=== PATIENT | male | born 2000 | race African-American/Black ===

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

== ENCOUNTER 2019-01-09 12:21 | Emergency (ER) | payer OTHER ==
[~2019-01-09] VITALS: Ht 193 cm; Wt 143.1 kg
[2019-01-09 12:45] VITALS: BP 136/54
--- NOTE | 2019-01-09 12:51 | NUR ---
PT TO LOBBY WITH PARENT
--- NOTE | 2019-01-09 13:21 | NUR ---
PT AMBULATED TO BED 08.
--- NOTE | 2019-01-09 13:27 | NUR ---
PT C/O OF NUMBNESS AND SHARP PAIN MAINLY IN FINGERTIPS. USED LATEX GLOVES AT WORK CAUSING PEELING OF THE FINGERTIPS. HAS BEEN OCCURRING FOR ABOUT 3 WEEKS AND PROGRESSIVELY GOTTEN WORSE. 10/10 PAIN. HAS NOT TAKEN ANY MEDS BUT TRIED TO PUT LOTION ON SKIN WHICH CAUSED MORE IRRITATION. CAP REFILL <2 SECONDS. SKIN PEELING ON BOTH HANDS. MEDHX: DENIES RX: DENIES
[2019-01-09 14:42] VITALS: BP 136/54
[2019-01-09] MEDS: BACITRACIN OINT 500 UNITS/GM PKT TP ONE (14:42)
--- NOTE | 2019-01-09 14:43 | NUR ---
Patient discharged with v/s stable. Written and verbal after care instructions given and explained. Patient alert, oriented and verbalized understanding of instructions. Ambulatory with steady gait. All questions addressed prior to discharge. ID band removed. Patient advised to follow up with PMD. Rx of bacitracin/ hydrocortisone given. Patient educated on indication of medication including possible reaction and side effects. Opportunity to ask questions provided and answered.
[2019-01-09] MEDS ORDERED: NEOMYCIN/POLYMYXIN/BACITRACIN 0.9 GM/1 PKT TP ONE (14:48)
== END 2019-01-09 14:43 | disposition home or self-care (01) ==
LOC: MED 12:21
DX: S61.001A Unspecified open wound of right thumb without damage to nail, initial encounter (principal); L25.9 Unspecified contact dermatitis, unspecified cause; Z79.899 Other long term (current) drug therapy; Z91.040 Latex allergy status; X58.XXXA Exposure to other specified factors, initial encounter; Y93.G1 Activity, food preparation and clean up; Y92.89 Other specified places as the place of occurrence of the external cause; Y99.8 Other external cause status
CPT/HCPCS: 99283

== ENCOUNTER 2019-06-30 12:07 | Emergency (ER) | payer OTHER ==
[~2019-06-30] VITALS: Ht 195.6 cm; Wt 129.3 kg
[~2019-06-30 12:07] MED LIST changes: +DIVA500T37 PO; -DIVA500T47 PO
--- NOTE | 2019-06-30 12:07 | NUR ---
PATIENT WHEELCHAIR ASSISTED TO BED 7.
[2019-06-30 12:10] VITALS: BP 148/80
--- NOTE | 2019-06-30 12:10 | NUR ---
pt bib mom c/o n/v/d, low abd pain s/p dx with DM on 06/29/2019. SKIN IS INTACT, PINK/WARM/DRY; AAOX4, PERRL, UNSTEADY GAIT-STS" I'm weak, I feel like I was going to passout."; LUNGS CLEAR BL, BREATHING UNLABORED; HR EVEN AND REGULAR, BL PERIPHERAL PULSES PRESENT; BS ACTIVE X4, NO TENDERNESS TO PALPATION. PT DENIES ANY FEVER, CP, SOB, OR COUGH AT THIS TIME; PT STATES 5/10 PAIN AT THIS TIME; VSS; PATIENT POSITIONED FOR COMFORT; HOB ELEVATED; BEDRAILS UP X2; BED DOWN.
[2019-06-30] MEDS ORDERED: NACL 0.9% 500 ML IV ONE (12:18)
[2019-06-30] MEDS ORDERED: METF1TER8 PO (12:32)
--- NOTE | 2019-06-30 12:35 | NUR ---
lab at bedside, ua sent
--- NOTE | 2019-06-30 12:41 | NUR ---
mom at bedside, nsr with pvs noted, -cp, -sob at this time
[2019-06-30 12:59] LABS: BASOPHILS % (AUTO) 0.1 % (0.0-2.0); HEMATOCRIT 46.1 % (36-52); HEMOGLOBIN 15.1 g/dL (12.0-18.0); LYMPHOCYTES # (AUTO) 0.2 K/uL (2.0-11.5); LYMPHOCYTES % (AUTO) 1.5 % (20.5-51.1); MEAN CORPUSCULAR HEMOGLOBIN 30 pg (27-31); MEAN CORPUSCULAR HGB CONC 33 g/dL (33-37); MEAN CORPUSCULAR VOLUME 90.2 fL (80-94); MONOCYTES # (AUTO) 0.3 K/uL (0.8-1.0); MONOCYTES % (AUTO) 3.3 % (1.7-9.3); NEUTROPHILS # (AUTO) 9.7 K/uL (1.8-7.7); NEUTROPHILS % (AUTO) 95.1 % (42.2-75.2); PLATELET COUNT (AUTO) 169 K/uL (140-450); RED BLOOD CELL COUNT(AUTO) 5.11 MIL/uL (4.20-6.10); WHITE BLOOD COUNT (AUTO) 10.2 K/uL (4.5-11.0)
[2019-06-30 13:18] LABS: ALBUMIN 4.4 g/dL (3.4-5.0); ANION GAP 15.7 (8-16); ASPARTATE AMINOTRANSFERASE 23 U/L (15-37); CARBON DIOXIDE 26.1 mmol/L (21-32); CHLORIDE 100 mmol/L (98-107); CREATININE 0.8 mg/dL (0.6-1.3); GFR ARICAN-AMERICAN 160 mL/min (>90); GLUCOSE 256 mg/dL (74-106); POTASSIUM 4.8 mmol/L (3.5-5.1); SODIUM SERUM 137 mmol/L (136-145); TOTAL BILIRUBIN 0.6 mg/dL (0.0-1.0); UREA NITROGEN, BLOOD 6 mg/dL (7-18)
[2019-06-30 13:21] LABS: ACETONE, SERUM NEGATIVE (NEGATIVE)
[2019-06-30 14:30] VITALS: BP 134/89
--- NOTE | 2019-06-30 14:30 | NUR ---
Patient discharged with v/s stable. Written and verbal after care instructions given and explained. Patient alert, oriented and verbalized understanding of instructions. Ambulatory with parents. All questions addressed prior to discharge. IV removed from RAC. Skin intact. ID band removed. Patient advised to follow up with PMD. Rx of motrin and zofran given. Patient educated on indication of medication including possible reaction and side effects. Opportunity to ask questions provided and answered.
--- NOTE | 2019-07-02 12:13 | NUR ---
Late entry. Confirmed with RN that 0.9 NS IV completed at 1330
== END 2019-06-30 14:30 | disposition home or self-care (01) ==
LOC: MED 12:07
DX: K52.9 Noninfective gastroenteritis and colitis, unspecified (principal); E11.9 Type 2 diabetes mellitus without complications; Z79.899 Other long term (current) drug therapy; Z91.040 Latex allergy status
CPT/HCPCS: 36415; 80053; 82009; 85025; 96360; 99283; J7030

== ENCOUNTER 2020-05-10 14:45 | Emergency (ER) | payer OTHER, SELFPAY ==
[~2020-05-10] VITALS: Ht 193 cm; Wt 131.5 kg
[~2020-05-10 14:45] MED LIST changes: +METF1TER8 PO
[2020-05-10 14:48] VITALS: BP 155/87
--- NOTE | 2020-05-10 16:14 | NUR ---
Patient discharged with v/s stable. Written and verbal after care instructions given and explained. Patient alert, oriented and verbalized understanding of instructions. Ambulatory with steady gait. All questions addressed prior to discharge. ID band removed. Patient advised to follow up with PMD. Rx of Zyrtec and Albuterol given. Patient educated on indication of medication including possible reaction and side effects. Opportunity to ask questions provided and answered. Covid swab collected and sent to the lab. No nursing care provided in our ER.
--- NOTE | 2020-05-15 01:00 | NUR ---
Positive COVID-19 test results were received from lab. A copy of the test results were given to Infection Control.
== END 2020-05-10 16:14 | disposition home or self-care (01) ==
LOC: MED 14:45
DX: R06.02 Shortness of breath (principal); Z20.828 Contact with and (suspected) exposure to other viral communicable diseases; E11.9 Type 2 diabetes mellitus without complications; Z91.040 Latex allergy status; Z79.899 Other long term (current) drug therapy
CPT/HCPCS: 71045; 99284; U0003

== ENCOUNTER 2020-05-12 06:24 | Emergency (ER) | payer OTHER, SELFPAY ==
[~2020-05-12] VITALS: Ht 190.5 cm; Wt 131.5 kg
[2020-05-12 06:40] VITALS: BP 131/72
--- NOTE | 2020-05-12 06:40 | NUR ---
TO TENT # 01 AMBULATORY
[2020-05-12] MEDS: ACETAMINOPHEN 325 MG TAB PO ONE (08:20)
[2020-05-12 09:35] VITALS: BP 131/72
--- NOTE | 2020-05-12 09:35 | NUR ---
Patient discharged with v/s stable. Written and verbal after care instructions given and explained. Patient alert, oriented and verbalized understanding of instructions. Ambulatory with steady gait. All questions addressed prior to discharge. ID band removed. Patient advised to follow up with PMD. Rx of PROMETHAZINE given. Patient educated on indication of medication including possible reaction and side effects. Opportunity to ask questions provided and answered.
== END 2020-05-12 09:35 | disposition home or self-care (01) ==
LOC: MED 06:24
DX: E11.9 Type 2 diabetes mellitus without complications (principal); Z20.828 Contact with and (suspected) exposure to other viral communicable diseases; Z79.84 Long term (current) use of oral hypoglycemic drugs; Z79.899 Other long term (current) drug therapy; Z91.040 Latex allergy status
CPT/HCPCS: 71045; 99283

== ENCOUNTER 2020-05-20 07:55 | Emergency (ER) | payer OTHER, SELFPAY ==
[~2020-05-20] VITALS: Ht 193 cm; Wt 127.0 kg
[2020-05-20 08:12] VITALS: BP 132/72
--- NOTE | 2020-05-20 08:15 | NUR ---
TENT 1
--- NOTE | 2020-05-20 08:15 | NUR ---
PT WANTS TO RECHECK COVID TO GO BACK TO WORK. PT HAD COVID TESTED + 05/10/20. DENIES S/S AT THIS TIME. PAIN 0. Addendum: 05/20/20 at 0952 by [email or web address] NO NEED NURSING
--- NOTE | 2020-05-20 09:12 | NUR ---
Patient discharged with v/s stable. Written and verbal after care instructions given and explained. Patient verbalized understanding. Ambulatory with steady gait. All questions addressed prior to discharge. Advised to follow up with PMD. DC BY DR SAM
== END 2020-05-20 09:12 | disposition home or self-care (01) ==
LOC: MED 07:55
DX: R05 Cough (principal); Z20.828 Contact with and (suspected) exposure to other viral communicable diseases; E11.9 Type 2 diabetes mellitus without complications; Z79.899 Other long term (current) drug therapy; Z91.040 Latex allergy status
CPT/HCPCS: 99283

== ENCOUNTER 2020-10-24 08:53 | Emergency (ER) | payer OTHER, SELFPAY ==
[~2020-10-24] VITALS: Ht 195.6 cm; Wt 142.4 kg
[2020-10-24 09:02] VITALS: BP 146/69
[2020-10-24] MEDS ORDERED: HYDROcodone/APAP 5/325 MG 1 TAB TAB PO ONE (09:15)
[2020-10-24] MEDS ORDERED: KETOROLAC 30 MG/ML VIAL IM ONE (09:15)
[2020-10-24] MEDS ORDERED: PSEU120T23 PO (10:48)
[2020-10-24] MEDS ORDERED: NAPR-54 PO (10:48)
[2020-10-24 11:06] VITALS: BP 146/69
== END 2020-10-24 11:05 | disposition home or self-care (01) ==
LOC: MED 08:53
DX: J02.9 Acute pharyngitis, unspecified (principal); E11.9 Type 2 diabetes mellitus without complications
CPT/HCPCS: 87081; 96372; 99283; J1885

== ENCOUNTER 2022-08-13 20:34 | Emergency (ER) | payer OTHER, BC ==
[~2022-08-13] VITALS: Ht 195.6 cm; Wt 127.0 kg
[~2022-08-13 20:34] MED LIST changes: +NAPR-54 PO; +PSEU120T23 PO
[2022-08-13 20:38] VITALS: BP 135/88
--- NOTE | 2022-08-13 20:41 | NUR ---
TO LOBBY A/W BED VIA W/C
[2022-08-13] MEDS ORDERED: IBUPROFEN 600 MG TAB PO ONE (20:50)
[2022-08-13] MEDS ORDERED: ACETAMINOPHEN EXTRA STRENGTH 500 MG TAB PO ONE (20:50)
--- NOTE | 2022-08-13 22:21 | NUR ---
PT TO 9
--- NOTE | 2022-08-13 22:25 | NUR ---
RECEIVED IN BED 9 WITH C/O FEVER,H/A, COUGH LOWER BACK PAIN, BOTH EYE PAIN , CHEST PAIN STARTED TODAY
[2022-08-13 23:15] LABS: BASOPHILS % (AUTO) 0.5 % (0.0-2.0); EOSINOPHILS % (AUTO) 0.1 % (0.0-4.0); HEMATOCRIT 44.5 % (36-52); HEMOGLOBIN 15.2 g/dL (12.0-18.0); LYMPHOCYTES # (AUTO) 1.1 K/uL (2.0-11.5); MEAN CORPUSCULAR HEMOGLOBIN 29 pg (27-31); MEAN CORPUSCULAR HGB CONC 34 g/dL (33-37); MONOCYTES # (AUTO) 0.5 K/uL (0.8-1.0); MONOCYTES % (AUTO) 6.2 % (1.7-9.3); NEUTROPHILS # (AUTO) 6.5 K/uL (1.8-7.7); NEUTROPHILS % (AUTO) 80.2 % (42.2-75.2); PLATELET COUNT (AUTO) 157 K/uL (140-450); RED BLOOD CELL COUNT(AUTO) 5.23 MIL/uL (4.20-6.10); RED CELL DISTRIBUTION WIDTH 13.4 % (11.6-13.7); WHITE BLOOD COUNT (AUTO) 8.1 K/uL (4.8-10.8)
[2022-08-13 23:47] LABS: ALBUMIN 4.2 g/dL (3.4-5.0); ANION GAP 15.5 (8-16); ASPARTATE AMINOTRANSFERASE 14 U/L (15-37); CARBON DIOXIDE 25.1 mmol/L (21-32); CHLORIDE 97 mmol/L (98-107); CREATININE 1.1 mg/dL (0.6-1.3); GFR ARICAN-AMERICAN 107 mL/min (>90); GLUCOSE 273 mg/dL (74-106); POTASSIUM 3.6 mmol/L (3.5-5.1); SODIUM SERUM 134 mmol/L (136-145); TOTAL BILIRUBIN 0.6 mg/dL (0.0-1.0); UREA NITROGEN, BLOOD 9 mg/dL (7-18)
[2022-08-14] MEDS ORDERED: IBUP-2213 PO (00:01)
[2022-08-14] MEDS ORDERED: AMOX1TAB8 PO (00:01)
[2022-08-14] MEDS ORDERED: ACET-10509 PO (00:01)
[2022-08-14] MEDS ORDERED: BENZ-300 PO (00:01)
[2022-08-14] MEDS ORDERED: GUAI118S41 PO (00:01)
--- NOTE | 2022-08-14 00:05 | NUR ---
SWABS OBTAINED AND SENT TO LAB
[2022-08-14 00:10] VITALS: BP 127/74
--- NOTE | 2022-08-14 00:10 | NUR ---
Patient discharged with v/s stable. Written and verbal after care instructions given and explained. Patient alert, oriented and verbalized understanding of instructions. Ambulatory with steady gait. All questions addressed prior to discharge. ID band removed. Patient advised to follow up with PMD. Rx of AMOXICILLIN, CEPACOL,IBUPROFEN given. Patient educated on indication of medication including possible reaction and side effects. Opportunity to ask questions provided and answered.
== END 2022-08-14 00:10 | disposition home or self-care (01) ==
LOC: MED 20:34
DX: J18.9 Pneumonia, unspecified organism (principal); Z20.822 Contact with and (suspected) exposure to COVID-19; E11.9 Type 2 diabetes mellitus without complications; Z79.4 Long term (current) use of insulin; Z79.899 Other long term (current) drug therapy
CPT/HCPCS: 36415; 71045; 80053; 84484; 85025; 93005; 99285

== ENCOUNTER 2023-05-18 22:01 | Emergency (ER) | payer BC, OTHER ==
[~2023-05-18] VITALS: Ht 193 cm; Wt 127.0 kg
[~2023-05-18 22:01] MED LIST changes: +ACET-10509 PO; +BENZ-300 PO; +GUAI118S41 PO; +IBUP-2213 PO
[2023-05-18 22:04] VITALS: BP 161/111; PULSE 115; RESP 20; RESP 28; TEMP 98.1; O2SAT 99
[2023-05-18] MEDS ORDERED: NACL 0.9% 1,000 ML IV ONE (23:55)
[2023-05-18] MEDS ORDERED: LORazepam 0.5 MG TAB PO ONE (23:55)
[2023-05-19 00:12] LABS: BASOPHILS # (AUTO) 0.1 K/uL (0.00-0.22); BASOPHILS % (AUTO) 0.5 % (0.0-2.0); EOSINOPHILS # (AUTO) 0.1 K/uL (0-0.4); EOSINOPHILS % (AUTO) 0.5 % (0.0-4.0); HEMATOCRIT 43.7 % (36-52); HEMOGLOBIN 15.4 g/dL (12.0-18.0); LYMPHOCYTES # (AUTO) 2.4 K/uL (2.0-11.5); MEAN CORPUSCULAR HEMOGLOBIN 30 pg (27-31); MEAN CORPUSCULAR HGB CONC 35 g/dL (33-37); MEAN CORPUSCULAR VOLUME 85.7 fL (80-94); MONOCYTES # (AUTO) 0.7 K/uL (0.8-1.0); NEUTROPHILS # (AUTO) 7.7 K/uL (1.8-7.7); PLATELET COUNT (AUTO) 196 K/uL (140-450); RED CELL DISTRIBUTION WIDTH 13.2 % (11.6-13.7); WHITE BLOOD COUNT (AUTO) 10.9 K/uL (4.8-10.8)
[2023-05-19 00:21] LABS: FLU A ANTIGEN negative (NEGATIVE); FLU B ANTIGEN NEGATIVE (NEGATIVE)
[2023-05-19 00:31] LABS: CALCIUM 10.5 mg/dL (8.5-10.1); CARBON DIOXIDE 21.5 mmol/L (21-32); POTASSIUM 3.5 mmol/L (3.5-5.1)
[2023-05-19 00:37] LABS: ALBUMIN 4.6 g/dL (3.4-5.0); BILIRUBIN,DIRECT 0.2 mg/dL (0.0-0.3); TOTAL BILIRUBIN 0.7 mg/dL (0.0-1.0)
[2023-05-19 00:51] VITALS: O2SAT 99
[2023-05-19 01:01] VITALS: BP 149/94; PULSE 104; RESP 19
[2023-05-19 01:53] LABS: ACETONE, SERUM Small (NEGATIVE)
[2023-05-19] MEDS ORDERED: ACETAMINOPHEN EXTRA STRENGTH 500 MG TAB PO ONE (02:35)
[2023-05-19] MEDS ORDERED: KETOROLAC 30 MG/ML VIAL IVP ONE (02:35)
[2023-05-19 02:40] LABS: APPEARANCE,URINE CLEAR (CLEAR); BILIRUBIN,URINE NEGATIVE (NEGATIVE); BLOOD, URINE NEGATIVE (NEGATIVE); COLOR,URINE YELLOW (YELLOW); LEUKOCYTE ESTERASE ,URINE NEGATIVE (NEGATIVE); NITRITE, URINE NEGATIVE (NEGATIVE); PH,URINE 8.5 (5.0-9.0); PROTEIN,URINE NEGATIVE (NEGATIVE); UGLUCOSE NEGATIVE (NEGATIVE); UROBILINOGEN,URINE 0.2 EU/dL (0.2 - 1)
[2023-05-19 03:01] VITALS: O2SAT 97
[2023-05-19 03:33] VITALS: TEMP 99.4
== END 2023-05-19 03:33 | disposition home or self-care (01) ==
LOC: MED 22:01
DX: J06.9 Acute upper respiratory infection, unspecified (principal); R00.0 Tachycardia, unspecified; F41.9 Anxiety disorder, unspecified; R06.02 Shortness of breath; E11.9 Type 2 diabetes mellitus without complications; Z20.822 Contact with and (suspected) exposure to COVID-19; Z79.899 Other long term (current) drug therapy; Z79.1 Long term (current) use of non-steroidal anti-inflammatories (NSAID); Z79.2 Long term (current) use of antibiotics
CPT/HCPCS: 36415; 71045; 80048; 80076; 81003; 82009; 82803; 83690; 84484; 85025; 85379; 87426; 87804; 93005; 96372; 99285; J1885; Q0092